=== PATIENT | female | born 1960 | race African-American/Black ===

== ENCOUNTER 2018-07-29 12:58 | Emergency (ER) | payer MEDICAID ==
[~2018-07-29] VITALS: Ht 157.5 cm; Wt 61.9 kg
[2018-07-29 13:02] VITALS: BP 129/84
--- NOTE | 2018-07-29 13:17 | NUR ---
Patient ambulated to bed 12. RN evaluating patient at bedside.
--- NOTE | 2018-07-29 13:25 | NUR ---
PT IS A 57 Y/O FEMALE WHO PRESENTS TO THE ED C/O ABD PAIN. PT STATES SYMPTOMS STARTED YESTERDAY. PT REPORTS 7/10 TINGLING LOWER ABD PAIN THAT DOES NOT RADIATE. PT DENIES CP, SOB, N/V/D. PT AWAKE AND ALERT, RR EVEN/UNLABORED. LAST BM YESTERDAY. PT REPOSITIONED FOR COMFORT, BED IN LOWEST POSITION. ER MD DR. HALL NOTIFIED. WILL CONTINUE TO MONITOR. MEDHX:ULCER RX:DENIES
[2018-07-29] MEDS ORDERED: NACL 0.9% 1,000 ML IV SCH (13:56)
[2018-07-29] MEDS ORDERED: NACL 0.9% 1,000 ML IV ONE (13:56)
[2018-07-29] MEDS ORDERED: ONDANSETRON 4 MG/2 ML VIAL IVP ONE (14:00)
[2018-07-29] MEDS ORDERED: KETOROLAC 30 MG/ML VIAL IVP ONE (14:00)
[2018-07-29] MEDS ORDERED: PROMETHAZINE 25 MG/ML VIAL IM ONE (14:00)
[2018-07-29] MEDS ORDERED: MORPHINE SULFATE 4 MG/ML SYR IVP ONE (14:00)
[2018-07-29 14:40] LABS: BASOPHILS % (AUTO) 0.4 % (0.0-2.0); EOSINOPHILS # (AUTO) 0.1 K/uL (0-0.4); EOSINOPHILS % (AUTO) 1.6 % (0.0-4.0); HEMATOCRIT 33.9 % (36-48); HEMOGLOBIN 11.1 g/dL (12.0-16.0); LYMPHOCYTES # (AUTO) 1.3 K/uL (2.5-16.5); MEAN CORPUSCULAR HEMOGLOBIN 28 pg (27-31); MEAN CORPUSCULAR HGB CONC 33 g/dL (33-37); MEAN CORPUSCULAR VOLUME 86.9 fL (80-94); MONOCYTES # (AUTO) 0.4 K/uL (0.8-1.0); MONOCYTES % (AUTO) 5.6 % (1.7-9.3); NEUTROPHILS # (AUTO) 5.2 K/uL (1.8-7.7); NEUTROPHILS % (AUTO) 74.4 % (42.2-75.2); PLATELET COUNT (AUTO) 257 K/uL (140-450); RED CELL DISTRIBUTION WIDTH 13.5 % (11.6-13.7)
[2018-07-29 14:58] LABS: ALBUMIN 3.4 g/dL (3.4-5.0); CARBON DIOXIDE 24.2 mmol/L (21-32); CREATININE 0.8 mg/dL (0.6-1.3); POTASSIUM 3.2 mmol/L (3.5-5.1); TOTAL BILIRUBIN 0.6 mg/dL (0.0-1.0)
[2018-07-29 15:09] LABS: APPEARANCE,URINE SL CLOUDY (CLEAR); BILIRUBIN,URINE NEGATIVE (NEGATIVE); BLOOD, URINE 3+ (NEGATIVE); COLOR,URINE YELLOW (YELLOW); LEUKOCYTE ESTERASE ,URINE 1+ (NEGATIVE); NITRITE, URINE NEGATIVE (NEGATIVE); UGLUCOSE NEGATIVE (NEGATIVE)
[2018-07-29 15:13] LABS: BARBITURATE, URINE NEG. ng/ml (NEG <=200); BENZODIAZEPINE, URINE NEG. ng/mL (NEG <=200); CANNABINOID, URINE NEG. ng/mL (NEG <=50); COCAINE, URINE NEG. ng/mL (NEG <=300); OPIATE, URINE NEG. ng/mL (NEG <=2000); PHENCYCLIDINE SCREEN,URINE NEG. ng/mL (NEG <=25)
[2018-07-29 15:32] LABS: RBC,URINE TOO NUMEROUS TO COUN /HPF (0-5); WBC,URINE TOO MANY TO COUNT /HPF (0-5)
[2018-07-29] MEDS ORDERED: LACTULOSE 20 GM/30 ML UDC PO ONE (16:00)
[2018-07-29] MEDS ORDERED: METOCLOPRAMIDE 10 MG TAB PO ONE (16:00)
[2018-07-29] MEDS ORDERED: LEVOFLOXACIN 500 MG/D5W PREMIX 100 ML IV ONE (16:00)
--- NOTE | 2018-07-29 16:30 | NUR ---
PT SLEEPING IN BED. AROUSABLE TO VERBAL STIMULI. PT STATED SHE IS SLEEPY AND PAIN RELIEVED. NO S/ OF RESPIRATORY DISTRESS NOTED. CYNTHIA LCONTINUE TO MONITOR.
[2018-07-29 18:00] VITALS: BP 125/78
--- NOTE | 2018-07-29 18:00 | NUR ---
Patient discharged with v/s stable. Written and verbal after care instructions given and explained. Patient alert, oriented and verbalized understanding of instructions. Ambulatory with steady gait. All questions addressed prior to discharge. ID band removed. Patient advised to follow up with PMD. Rx of CIPRO AND COLACE given. Patient educated on indication of medication including possible reaction and side effects. Opportunity to ask questions provided and answered.
== END 2018-07-29 18:00 | disposition home or self-care (01) ==
LOC: MED 12:58
DX: N39.0 Urinary tract infection, site not specified (principal); K59.09 Other constipation; K21.9 Gastro-esophageal reflux disease without esophagitis; Z88.2 Allergy status to sulfonamides; Z98.890 Other specified postprocedural states
CPT/HCPCS: 36415; 74176; 80053; 80305; 81001; 81025; 82150; 83605; 83690; 85025; 87086; 96361; 96365; 96375; 99284; J1885; J1956; J2270; J2405; J2550; J8597; J7030